=== PATIENT | female | born 1955 | race African-American/Black ===

== ENCOUNTER 2018-02-10 11:24 | Emergency (ER) | payer OTHER ==
[~2018-02-10] VITALS: Ht 162.6 cm; Wt 61.2 kg
[~2018-02-10 11:24] MED LIST: DICL50TA9; GABA-534
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
--- NOTE | 2018-02-10 13:16 | NUR ---
PT IS IN ROOM #2B. DR PROCTOR EVALUATED THE PT.
--- NOTE | 2018-02-10 15:10 | NUR ---
PT WAS D/C'd TO HOME. D/C INSTRUCTIONS GIVEN TO THE PT.
[2018-02-10 15:11] VITALS: BP 136/89
== END 2018-02-10 15:11 | disposition home or self-care (01) ==
LOC: ER 11:24
DX: S16.1XXA Strain of muscle, fascia and tendon at neck level, initial encounter (principal); S39.012A Strain of muscle, fascia and tendon of lower back, initial encounter; R51 Headache; H57.10 Ocular pain, unspecified eye; H92.09 Otalgia, unspecified ear; Z79.899 Other long term (current) drug therapy; Z88.5 Allergy status to narcotic agent; V43.52XA Car driver injured in collision with other type car in traffic accident, initial encounter; Y93.89 Activity, other specified; Y92.89 Other specified places as the place of occurrence of the external cause; Y99.8 Other external cause status
CPT/HCPCS: 70450; 72125; 72131; A4663

== ENCOUNTER 2018-02-12 07:47 | Emergency (ER) | payer OTHER ==
[~2018-02-12] VITALS: Ht 165.1 cm; Wt 61.2 kg
--- NOTE | 2018-02-12 08:02 | NUR ---
is at bedside doing the MSE.
--- NOTE | 2018-02-12 08:34 | NUR ---
Patient requested for copies of all her tests' results (including a cd copy of the x-ray) and the signed discharge paper. Patient discharged to home in stable conditon. Written and verbal after care instructions given to patient. Patient verbalizes understanding of instructions. Patient ambulated to ER waiting room with brisk steady gait.
== END 2018-02-12 08:38 | disposition home or self-care (01) ==
LOC: ER 07:47
DX: G89.11 Acute pain due to trauma (principal); R07.89 Other chest pain; M54.6 Pain in thoracic spine; Z88.5 Allergy status to narcotic agent; Z79.899 Other long term (current) drug therapy; V43.52XA Car driver injured in collision with other type car in traffic accident, initial encounter; Y93.89 Activity, other specified; Y92.89 Other specified places as the place of occurrence of the external cause; Y99.8 Other external cause status
CPT/HCPCS: 71045; 93005; A4663

== ENCOUNTER 2018-06-05 15:02 | Emergency (ER) | payer OTHER ==
[~2018-06-05] VITALS: Ht 167.6 cm; Wt 68.9 kg
--- NOTE | 2018-06-05 15:22 | NUR ---
REFERRED TO FOR HOMELESS PATIENT PROTOCOL.
--- NOTE | 2018-06-05 15:35 | NUR ---
PT IS IN ROOM #2A. DR HAYNES EVALUATED THE PT. DRAPERY HANGER JULIA EVALUATED THE PT.
--- NOTE | 2018-06-05 16:04 | NUR ---
3:20pm: SS consultation received. SW arrived to the ED and met with Dr. Eisenberg to discuss patient's case. SW then met with patient, who was receptive to meeting with this SW. Patient is a 63 year old female who reports that she has been homeless since 2012. Patient states she lives in her car. SW and patient discussed the available homeless resources, and patient declined resources on shelters and declines to be referred to a correction. Patient stated "i have my car, i will return there". SW offered assistance with transportation, but patient declined and stated she will take the bus. Patient was offered a meal. Patient was dressed in appropriate and clean clothes and stated she has more clothes in her car, and declined additional clothing. Patient agreed to take information on resources for food and showers, and SW provided patient with a copy of the [facility] Homeless Resource Directory which includes a list of locations for hot meals, sack, lunches, showers, and food pantries. A list of resources for medical clinics, mental health clinics, and substance abuse treatment programs and clinics provided to patient, along with a list of pharmacies throughout the [facility]. Patient signed the Homeless Patient Waiver Form. Patient expressed gratitude for the resources/information provided. no further SS interventions needed at this time. The Homeless patient waiver form and a copy of the resources provided were filed in patient's ED chart.
--- NOTE | 2018-06-05 16:14 | NUR ---
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 D/C INSTRUCTIONS GIVEN TO THE PT.
[2018-06-05 16:22] VITALS: BP 132/71
== END 2018-06-05 16:24 | disposition home or self-care (01) ==
LOC: ER 15:02
DX: R22.0 Localized swelling, mass and lump, head (principal); K04.7 Periapical abscess without sinus; Z88.5 Allergy status to narcotic agent; Z59.0 Homelessness; Z79.899 Other long term (current) drug therapy
CPT/HCPCS: A4663

== ENCOUNTER 2019-06-13 16:43 | Emergency (ER) | payer OTHER ==
[~2019-06-13] VITALS: Ht 165.1 cm; Wt 63.5 kg
[2019-06-13 18:02] LABS: *BILIRUBIN,URIN NEGATIVE (NEGATIVE); *BLOOD, URINE NEGATIVE (NEGATIVE); *CLARITY,URINE CLEAR (CLEAR); *COLOR,URINE YELLOW (YELLOW); *KETONES,URINE NEGATIVE (NEGATIVE); *UROBILINOGEN,URINE 0.2 E.U./dl (NORMAL); LEUKOCYTE ESTERASE ,URINE TRACE (NEGATIVE); NITRITE, URINE NEGATIVE (NEGATIVE); UGLUCOSE NEGATIVE (NEGATIVE)
[2019-06-13 18:09] LABS: RBC,URINE 0-3 /HPF (0-3); SQUAMOUS EPITHELIAL CELL,UR FEW /HPF (NONE SEEN)
[2019-06-13 18:33] VITALS: BP 133/86
== END 2019-06-13 18:45 | disposition home or self-care (01) ==
LOC: ER 16:48
DX: S39.012A Strain of muscle, fascia and tendon of lower back, initial encounter (principal); S16.1XXA Strain of muscle, fascia and tendon at neck level, initial encounter; V43.62XA Car passenger injured in collision with other type car in traffic accident, initial encounter; Y92.410 Unspecified street and highway as the place of occurrence of the external cause; R35.0 Frequency of micturition; M79.7 Fibromyalgia; R51 Headache; Z59.0 Homelessness; G89.29 Other chronic pain; M25.559 Pain in unspecified hip
CPT/HCPCS: 72050; 72072; 72100; A4663

== ENCOUNTER 2021-01-18 09:27 | Emergency (ER) | payer MEDICARE, OTHER ==
[~2021-01-18] VITALS: Ht 172.7 cm; Wt 74.8 kg
[2021-01-18 09:59] LABS: HEMATOCRIT 38.7 % (31.2-41.9); MEAN CORPUSCULAR HEMOGLOBIN 30.4 uug (24.7-32.8); MEAN CORPUSCULAR VOLUME 89.4 fL (75.5-95.3); PLATELET COUNT (AUTO) 432 K/uL (179-408)
[2021-01-18 10:06] LABS: POTASSIUM 3.8 mmol/L (3.5-5.1)
[2021-01-18] MEDS ORDERED: AMOX500C2 PO (10:45)
--- NOTE | 2021-01-18 11:03 | NUR ---
Gave pt CD/repport and d/c instructions, pt verbalized understanding.
== END 2021-01-18 11:05 | disposition home or self-care (01) ==
LOC: ER 09:27
DX: R51.9 Headache, unspecified (principal); J32.8 Other chronic sinusitis; E04.1 Nontoxic single thyroid nodule; Z59.02 Unsheltered homelessness; M79.7 Fibromyalgia; Z88.6 Allergy status to analgesic agent
CPT/HCPCS: 36415; 70486; 85025; A4663

== ENCOUNTER 2021-05-21 14:14 | Emergency (ER) | payer MEDICARE, OTHER ==
[~2021-05-21] VITALS: Ht 165.1 cm; Wt 74.8 kg
[~2021-05-21 14:14] MED LIST changes: +AMOX500C2 PO
[2021-05-21] MEDS ORDERED: AMOXICILLIN-CLAVUL 875-125MG TABLET PO ONE (14:45)
[2021-05-21] MEDS ORDERED: AMOX-430 PO (14:46)
[2021-05-21] MEDS ORDERED: AMOXICILLIN-CLAVUL 875-125MG TABLET ONE (14:51)
--- NOTE | 2021-05-21 15:02 | NUR ---
Gave pt RX and d/c instructions, pt verbalized understanding.
== END 2021-05-21 15:05 | disposition home or self-care (01) ==
LOC: ER 14:14
DX: R22.0 Localized swelling, mass and lump, head (principal); M79.7 Fibromyalgia; Z88.6 Allergy status to analgesic agent
CPT/HCPCS: A4663

== ENCOUNTER 2021-07-22 21:09 | Emergency (ER) | payer MEDICARE, OTHER ==
[~2021-07-22] VITALS: Ht 165.1 cm; Wt 1.8 kg
[~2021-07-22 21:09] MED LIST changes: +AMOX-430 PO
--- NOTE | 2021-07-22 22:36 | NUR ---
Dr lopez at bedside, MSE in progress.
[2021-07-22] MEDS ORDERED: NITROGLYCERIN OINT 1 GM PACKET TP ONE ×2 (23:00→23:28)
[2021-07-22] MEDS ORDERED: ASPIRIN 81 MG TAB.CHEW PO ONE (23:00)
[2021-07-22 23:14] LABS: MEAN CORPUSCULAR HEMOGLOBIN 29.9 uug (24.7-32.8); MEAN CORPUSCULAR VOLUME 87.2 fL (75.5-95.3); PLATELET COUNT (AUTO) 401 K/uL (179-408)
[2021-07-22 23:24] LABS: CARBON DIOXIDE 30 mmol/L (21-32); CHLORIDE 105 mmol/L (98-107); CREATININE 0.8 mg/dL (0.6-1.3); GLUCOSE 91 mg/dL (74-106); POTASSIUM 3.9 mmol/L (3.5-5.1); UREA NITROGEN, BLOOD 16 mg/dL (7-18)
[2021-07-22] MEDS ORDERED: ASPIRIN 81 MG TAB.CHEW ONE (23:28)
[2021-07-22 23:37] LABS: ALANINE AMINOTRANSFERASE 26 U/L (14-59); ALKALINE PHOSPHATASE 172 U/L (50-136); ASPARTATE AMINOTRANSFERASE 18 U/L (15-37); BILIRUBIN,DIRECT 0.2 mg/dL (0.0-0.2)
[2021-07-23] MEDS ORDERED: HYDR-4209 PO (02:49)
--- NOTE | 2021-07-23 03:09 | NUR ---
Patient discharged to home in stable condition. Written and verbal after care instructions given. Patient verbalizes understanding of instructions. Stressed follow up or return to ER for worsening s/s. pt ambulated with steady gait. denies pain. no SOB. no chest pain. AOx4
[2021-07-23 03:10] VITALS: BP 138/79
== END 2021-07-23 03:11 | disposition home or self-care (01) ==
LOC: ER 21:15
DX: R07.9 Chest pain, unspecified (principal); M79.7 Fibromyalgia; G89.29 Other chronic pain; M54.50 Low back pain, unspecified
CPT/HCPCS: 36415; 71045; 72050; 72072; 72110; 84484; 85025; 85730; 93005; A4663

== ENCOUNTER 2021-08-15 10:36 | Emergency (ER) | payer MEDICARE, OTHER ==
[~2021-08-15] VITALS: Ht 165.1 cm; Wt 69.4 kg
[~2021-08-15 10:36] MED LIST changes: +HYDR-4209 PO
[2021-08-15] MEDS ORDERED: ASPIRIN 325 MG TABLET PO ONE (10:45)
[2021-08-15] MEDS ORDERED: ASPIRIN 325 MG TABLET ONE ×2 (10:55→11:02)
--- NOTE | 2021-08-15 11:22 | NUR ---
PT IS IN ROOM #2B. DR HYATT EVALUATED THE PT.
[2021-08-15 11:30] LABS: HEMATOCRIT 37.4 % (31.2-41.9); MEAN CORPUSCULAR VOLUME 86.8 fL (75.5-95.3); PLATELET COUNT (AUTO) 381 K/uL (179-408)
[2021-08-15 11:58] LABS: CARBON DIOXIDE 26 mmol/L (21-32); CHLORIDE 106 mmol/L (98-107); CREATININE 0.8 mg/dL (0.6-1.3); GLUCOSE 104 mg/dL (74-106); POTASSIUM 3.9 mmol/L (3.5-5.1); UREA NITROGEN, BLOOD 15 mg/dL (7-18)
[2021-08-15 12:07] LABS: ALANINE AMINOTRANSFERASE 24 U/L (14-59); ALKALINE PHOSPHATASE 161 U/L (50-136); ASPARTATE AMINOTRANSFERASE 19 U/L (15-37); BILIRUBIN,DIRECT 0.2 mg/dL (0.0-0.2); BILIRUBIN,TOTAL 0.9 mg/dL (0.2-1.0); TOTAL PROTEIN, SERUM 7.6 g/dL (6.4-8.2)
--- NOTE | 2021-08-15 13:51 | NUR ---
PT WAS D/C'd TO HOME. D/C INSTRUCTIONS GIVEN TO THE PT BY REESE.
[2021-08-15 13:59] VITALS: BP 136/75
== END 2021-08-15 14:00 | disposition home or self-care (01) ==
LOC: ER 10:38
DX: R07.9 Chest pain, unspecified (principal); S16.1XXA Strain of muscle, fascia and tendon at neck level, initial encounter; X58.XXXA Exposure to other specified factors, initial encounter; Y92.89 Other specified places as the place of occurrence of the external cause; G89.29 Other chronic pain; M54.9 Dorsalgia, unspecified; I10 Essential (primary) hypertension; M79.7 Fibromyalgia
CPT/HCPCS: 36415; 71045; 84484; 85025; 93005; A4663

== ENCOUNTER 2022-03-13 07:14 | Emergency (ER) | payer MEDICARE, OTHER ==
[~2022-03-13] VITALS: Ht 165.1 cm; Wt 72.6 kg
[~2022-03-13 07:14] MED LIST changes: -AMOX-430 PO; -AMOX500C2 PO
--- NOTE | 2022-03-13 08:03 | NUR ---
Pt refused Covid swab -- would not allow "violation" of her body/nasal space.
[2022-03-13 08:13] LABS: HEMATOCRIT 40.9 % (31.2-41.9); MEAN CORPUSCULAR HEMOGLOBIN 29.7 uug (24.7-32.8); MEAN CORPUSCULAR VOLUME 86.1 fL (75.5-95.3); PLATELET COUNT (AUTO) 475 K/uL (179-408)
[2022-03-13 08:19] LABS: CARBON DIOXIDE 26 mmol/L (21-32); CHLORIDE 106 mmol/L (98-107); GLUCOSE 120 mg/dL (74-106); POTASSIUM 3.7 mmol/L (3.5-5.1); UREA NITROGEN, BLOOD 8 mg/dL (7-18)
[2022-03-13 08:19] LABS: *BILIRUBIN,URIN NEGATIVE (NEGATIVE); *BLOOD, URINE NEGATIVE (NEGATIVE); *CLARITY,URINE CLEAR (CLEAR); *COLOR,URINE YELLOW (YELLOW); *KETONES,URINE NEGATIVE (NEGATIVE); *UROBILINOGEN,URINE 0.2 E.U./dl (NORMAL); LEUKOCYTE ESTERASE ,URINE NEGATIVE (NEGATIVE); NITRITE, URINE NEGATIVE (NEGATIVE); UGLUCOSE NEGATIVE (NEGATIVE)
[2022-03-13 08:24] LABS: ALANINE AMINOTRANSFERASE 13 U/L (14-59); ALKALINE PHOSPHATASE 175 U/L (50-136); ASPARTATE AMINOTRANSFERASE 14 U/L (15-37); BILIRUBIN,TOTAL 1.1 mg/dL (0.2-1.0)
[2022-03-13 08:25] LABS: ACETAMINOPHEN < 2.0 ug/mL (10-30)
[2022-03-13] MEDS ORDERED: ACETAMINOPHEN 325 MG TABLET PO ONE (08:30)
[2022-03-13 08:50] VITALS: BP 154/81
--- NOTE | 2022-03-13 08:50 | NUR ---
Patient discharged to home in stable condition. Written and verbal after care instructions given. Patient verbalizes understanding of instructions. Stressed follow up or return to ER for worsening s/s.
== END 2022-03-13 08:50 | disposition home or self-care (01) ==
LOC: ER 07:14
DX: B34.9 Viral infection, unspecified (principal); J20.9 Acute bronchitis, unspecified; D75.839 Thrombocytosis, unspecified; M79.7 Fibromyalgia; J44.9 Chronic obstructive pulmonary disease, unspecified
CPT/HCPCS: 36415; 71045; 85025; A4663

== ENCOUNTER 2022-11-20 23:45 | Emergency (ER) | payer MEDICARE, OTHER ==
[~2022-11-20] VITALS: Ht 162.6 cm; Wt 65.8 kg
[2022-11-21 00:50] LABS: BASOPHILS # (AUTO) 0.4 K/UL (0.0-0.2); BASOPHILS % (AUTO) 4.7 % (0.0-2.0); DIFFERENTIAL COMMENT 0; EOSINOPHILS # (AUTO) 0.4 K/uL (0.0-0.7); EOSINOPHILS % (AUTO) 5.1 % (0.0-7.0); HEMOGLOBIN 12.3 g/dL (10.9-14.3); LYMPHOCYTES # (AUTO) 1.8 K/uL (0.8-4.8); LYMPHOCYTES % (AUTO) 22.6 % (20.5-51.5); MEAN CORPUSCULAR HEMOGLOBIN 30.4 uug (24.7-32.8); MEAN CORPUSCULAR HGB CONC 34 g/dL (32.3-35.6); MEAN CORPUSCULAR VOLUME 88.6 fL (75.5-95.3); MONOCYTES # (AUTO) 0.6 K/uL (0.1-1.30); MONOCYTES % (AUTO) 7.8 % (0.0-11.0); NEUTROPHILS # (AUTO) 4.6 K/uL (1.8-8.9); NEUTROPHILS % (AUTO) 59.8 % (38.5-71.5); PLATELET COUNT (AUTO) 373 K/uL (179-408); RED BLOOD CELL COUNT(AUTO) 4.06 MIL/uL (3.63-4.92); RED CELL DISTRIBUTION WIDTH 13.7 % (12.3-17.7); WHITE BLOOD COUNT (AUTO) 7.8 K/uL (3.8-11.8)
[2022-11-21 00:53] LABS: CALCIUM 8.9 mg/dL (8.5-10.1); CARBON DIOXIDE 25 mmol/L (21-32); CHLORIDE 106 mmol/L (98-107); GLUCOSE 115 mg/dL (74-106); POTASSIUM 4.1 mmol/L (3.5-5.1); SODIUM SERUM 143 mmol/L (136-145); UREA NITROGEN, BLOOD 16 mg/dL (7-18)
[2022-11-21 01:01] LABS: ALANINE AMINOTRANSFERASE 30 U/L (14-59); ALBUMIN 3.6 g/dL (3.4-5.0); ALKALINE PHOSPHATASE 117 U/L (50-136); ASPARTATE AMINOTRANSFERASE 22 U/L (15-37); BILIRUBIN,DIRECT 0.2 mg/dL (0.0-0.2); BILIRUBIN,TOTAL 0.8 mg/dL (0.2-1.0); TOTAL PROTEIN, SERUM 6.9 g/dL (6.4-8.2)
[2022-11-21] MEDS ORDERED: CYCL10TA9 PO (05:13)
[2022-11-21 05:31] VITALS: BP 136/92; TEMP 98.3; O2SAT 98
== END 2022-11-21 05:15 | disposition home or self-care (01) ==
LOC: ER 23:48
DX: M54.2 Cervicalgia (principal); R51.9 Headache, unspecified; M25.511 Pain in right shoulder; R07.89 Other chest pain; M25.551 Pain in right hip; M25.552 Pain in left hip; E78.5 Hyperlipidemia, unspecified; G89.29 Other chronic pain; M54.9 Dorsalgia, unspecified; Z88.5 Allergy status to narcotic agent; Z79.899 Other long term (current) drug therapy; V69.9XXA Occupant (driver) (passenger) of heavy transport vehicle injured in unspecified traffic accident, initial encounter; Y93.89 Activity, other specified; Y92.89 Other specified places as the place of occurrence of the external cause; Y99.8 Other external cause status
CPT/HCPCS: 36415; 70450; 71045; 72125; 72170; 73020; 84484; 85025; 93005; A4663

== ENCOUNTER 2022-11-27 14:38 | Emergency (ER) | payer MEDICARE, OTHER ==
[~2022-11-27] VITALS: Ht 165.1 cm; Wt 68.0 kg
[~2022-11-27 14:38] MED LIST changes: +CYCL10TA9 PO
[2022-11-27] MEDS ORDERED: PRAVASTATIN (15:19)
[2022-11-27] MEDS ORDERED: PLAVIX (15:19)
[2022-11-27 15:55] LABS: BASOPHILS % (AUTO) 0.7 % (0.0-2.0); EOSINOPHILS # (AUTO) 0.3 K/uL (0.0-0.7); EOSINOPHILS % (AUTO) 4.3 % (0.0-7.0); HEMATOCRIT 36.8 % (31.2-41.9); HEMOGLOBIN 12.5 g/dL (10.9-14.3); LYMPHOCYTES # (AUTO) 2.2 K/uL (0.8-4.8); LYMPHOCYTES % (AUTO) 35.5 % (20.5-51.5); MEAN CORPUSCULAR HGB CONC 34 g/dL (32.3-35.6); MEAN CORPUSCULAR VOLUME 88.5 fL (75.5-95.3); MONOCYTES # (AUTO) 0.4 K/uL (0.1-1.30); MONOCYTES % (AUTO) 7.1 % (0.0-11.0); NEUTROPHILS # (AUTO) 3.3 K/uL (1.8-8.9); NEUTROPHILS % (AUTO) 52.4 % (38.5-71.5); PLATELET COUNT (AUTO) 382 K/uL (179-408); RED BLOOD CELL COUNT(AUTO) 4.16 MIL/uL (3.63-4.92); RED CELL DISTRIBUTION WIDTH 13.6 % (12.3-17.7); WHITE BLOOD COUNT (AUTO) 6.3 K/uL (3.8-11.8)
[2022-11-27 16:01] LABS: DIFFERENTIAL COMMENT 1
[2022-11-27] MEDS ORDERED: IOHEXOL 300MG/ML 100 ML INFUS..BTL ONE ×2 (16:04→16:08)
[2022-11-27] MEDS ORDERED: SWABABLE VALVE TRANSFER SET EA MC ONE ×2 (16:04→16:08)
[2022-11-27] MEDS ORDERED: IV NORMAL SALINE 250 ML IV ONE ×2 (16:04→16:08)
[2022-11-27 16:07] LABS: CALCIUM 9.2 mg/dL (8.5-10.1); CREATININE 1.5 mg/dL (0.6-1.3); POTASSIUM 4.2 mmol/L (3.5-5.1)
[2022-11-27] MEDS ORDERED: CYCL5TAB PO (18:47)
[2022-11-27 19:02] VITALS: BP 125/60; O2SAT 97
== END 2022-11-27 19:03 | disposition home or self-care (01) ==
LOC: ER 14:46
DX: M54.9 Dorsalgia, unspecified (principal); G89.29 Other chronic pain; M54.2 Cervicalgia; Z88.5 Allergy status to narcotic agent; Z79.899 Other long term (current) drug therapy
CPT/HCPCS: 99285; 72126; 80048; 85025; 36415; 93005; 72131; Q9967 ×2; A4663

== ENCOUNTER 2024-03-23 15:06 | Inpatient (IN) | payer MEDICARE, OTHER ==
[~2024-03-23] VITALS: Ht 165.1 cm; Wt 71.2 kg
[~2024-03-23 15:06] MED LIST changes: -CYCL10TA9 PO; +CYCL5TAB PO; -DICL50TA9; -GABA-534; -HYDR-4209 PO; +PLAVIX; +PRAVASTATIN
[2024-03-23 16:10] LABS: BASOPHILS % (AUTO) 0.4 % (0.0-2.0); EOSINOPHILS % (AUTO) 0.4 % (0.0-7.0); HEMATOCRIT 37.2 % (31.2-41.9); HEMOGLOBIN 12.2 g/dL (10.9-14.3); LYMPHOCYTES # (AUTO) 0.2 K/uL (0.8-4.8); LYMPHOCYTES % (AUTO) 2.6 % (20.5-51.5); MEAN CORPUSCULAR HEMOGLOBIN 28.3 uug (24.7-32.8); MEAN CORPUSCULAR HGB CONC 33 g/dL (32.3-35.6); MEAN CORPUSCULAR VOLUME 86.4 fL (75.5-95.3); MONOCYTES # (AUTO) 0.6 K/uL (0.1-1.30); MONOCYTES % (AUTO) 7.1 % (0.0-11.0); NEUTROPHILS # (AUTO) 7.8 K/uL (1.8-8.9); NEUTROPHILS % (AUTO) 89.5 % (38.5-71.5); PLATELET COUNT (AUTO) 388 K/uL (179-408); RED BLOOD CELL COUNT(AUTO) 4.31 MIL/uL (3.63-4.92); RED CELL DISTRIBUTION WIDTH 13.7 % (12.3-17.7); WHITE BLOOD COUNT (AUTO) 8.7 K/uL (3.8-11.8)
[2024-03-23] MEDS ORDERED: ONDANSETRON 4 MG/2 ML VIAL ONE (16:13)
[2024-03-23 16:23] LABS: AMMONIA 23 umol/L (11-32)
[2024-03-23] MEDS: ONDANSETRON 4 MG/2 ML VIAL IV ONE (16:30)
[2024-03-23] MEDS: IV NORMAL SALINE 1000 ML BAG IV ONE (16:30)
[2024-03-23 16:51] LABS: CALCIUM 8.9 mg/dL (8.5-10.1); CARBON DIOXIDE 23 mmol/L (21-32); CHLORIDE 104 mmol/L (98-107); GLUCOSE 116 mg/dL (74-106); POTASSIUM 3.9 mmol/L (3.5-5.1); SODIUM SERUM 138 mmol/L (136-145); UREA NITROGEN, BLOOD 13 mg/dL (7-18)
[2024-03-23 16:59] LABS: ALANINE AMINOTRANSFERASE 14 U/L (14-59); ALBUMIN 3.6 g/dL (3.4-5.0); ALKALINE PHOSPHATASE 154 U/L (50-136); ASPARTATE AMINOTRANSFERASE 11 U/L (15-37); BILIRUBIN,DIRECT 0.2 mg/dL (0.0-0.2); BILIRUBIN,TOTAL 1.1 mg/dL (0.2-1.0); TOTAL PROTEIN, SERUM 8.4 g/dL (6.4-8.2)
[2024-03-23 17:23] LABS: *BILIRUBIN,URIN NEGATIVE (NEGATIVE); *CLARITY,URINE CLEAR (CLEAR); *COLOR,URINE YELLOW (YELLOW); *KETONES,URINE TRACE (NEGATIVE); *PROTEIN,URINE TRACE (NEGATIVE); *UROBILINOGEN,URINE 0.2 E.U./dl (NORMAL); LEUKOCYTE ESTERASE ,URINE TRACE (NEGATIVE); NITRITE, URINE NEGATIVE (NEGATIVE); PH,URINE 5.5 (5.0-8.0); UGLUCOSE NEGATIVE (NEGATIVE)
[2024-03-23 17:25] LABS: *BLOOD, URINE TRACE (NEGATIVE)
[2024-03-23] MEDS ORDERED: IOHEXOL 350 100 ML INFUS..BTL ONE (17:43)
[2024-03-23] MEDS ORDERED: IV NORMAL SALINE 250 ML IV ONE (17:43)
[2024-03-23] MEDS ORDERED: SWABABLE VALVE TRANSFER SET EA MC ONE (17:44)
[2024-03-23 17:49] LABS: BACTERIA,URINE MODERATE /HPF (NONE SEEN); SQUAMOUS EPITHELIAL CELL,UR FEW /HPF (NONE SEEN)
[2024-03-23 17:50] LABS: URINE AMORPHOUS URATE MANY /HPF
[2024-03-23] MEDS ORDERED: hydrALAZINE HCL 20 MG/1 ML VIAL IV PRN (18:00)
[2024-03-23] MEDS ORDERED: ONDANSETRON 4 MG/2 ML VIAL IV PRN (18:00)
[2024-03-23] MEDS ORDERED: ACETAMINOPHEN 325 MG TABLET PO PRN (18:00)
[2024-03-23] MEDS ORDERED: MORPHINE SULFATE 2 MG/1 ML DISP.SYRIN IVP PRN (18:00)
[2024-03-23] MEDS ORDERED: CYANOCOBALAMIN 1000 MCG/ML VIAL ONE (18:39)
[2024-03-23] MEDS ORDERED: AMOXICILLIN-CLAVUL 875-125MG TABLET ONE (18:39)
[2024-03-23] MEDS: CYANOCOBALAMIN 1000 MCG/ML VIAL IM ONE (18:46)
[2024-03-23] MEDS: AMOXICILLIN-CLAVUL 875-125MG TABLET PO ONE (18:46)
[2024-03-23 21:54] VITALS: BP 154/77; TEMP 99.6; O2SAT 93
[2024-03-24] VITALS (7 sets, daily range): BP systolic 135–158; BP diastolic 64–76; TEMP 98.3–99.8; O2SAT 92–96
[2024-03-24 07:24] LABS: BASOPHILS % (AUTO) 0.4 % (0.0-2.0); EOSINOPHILS % (AUTO) 0.1 % (0.0-7.0); HEMATOCRIT 31.9 % (31.2-41.9); LYMPHOCYTES # (AUTO) 0.3 K/uL (0.8-4.8); LYMPHOCYTES % (AUTO) 5.4 % (20.5-51.5); MEAN CORPUSCULAR HEMOGLOBIN 29.6 uug (24.7-32.8); MEAN CORPUSCULAR HGB CONC 34 g/dL (32.3-35.6); MEAN CORPUSCULAR VOLUME 86.2 fL (75.5-95.3); MONOCYTES % (AUTO) 16.5 % (0.0-11.0); NEUTROPHILS # (AUTO) 4.6 K/uL (1.8-8.9); NEUTROPHILS % (AUTO) 77.6 % (38.5-71.5); PLATELET COUNT (AUTO) 316 K/uL (179-408); RED BLOOD CELL COUNT(AUTO) 3.71 MIL/uL (3.63-4.92); RED CELL DISTRIBUTION WIDTH 13.8 % (12.3-17.7)
[2024-03-24 07:43] LABS: DIFFERENTIAL COMMENT 1
[2024-03-24 07:59] LABS: ALBUMIN 3.1 g/dL (3.4-5.0); BILIRUBIN,TOTAL 1.2 mg/dL (0.2-1.0); CALCIUM 8.1 mg/dL (8.5-10.1); PHOSPHOROUS 3.4 mg/dL (2.5-4.9); POTASSIUM 3.6 mmol/L (3.5-5.1); TOTAL PROTEIN, SERUM 6.9 g/dL (6.4-8.2)
[2024-03-24] MEDS: CEFTRIAXONE 1 G in IV DEXTROSE 5% 50 ML IV SCH (08:13)
[2024-03-24] MEDS: HEPARIN SODIUM,PORCINE 5,000 UNITS/ML VIAL SQ SCH (08:20)
[2024-03-24 11:21] LABS: LYMPHOCYTES % (MANUAL) 5 % (20-40); NEUTROPHILS % (MANUAL) 78 % (42-75)
[2024-03-24 11:22] LABS: MONOCYTES % (MANUAL) 17 % (2-10); PLATELET ESTIMATE ADEQUATE
[2024-03-24] MEDS: AMIODARONE HCL IV 150 MG in IV DEXTROSE 5% 100 ML IV ONE (18:08)
[2024-03-24] MEDS: APIXABAN 5 MG TABLET PO SCH (18:08)
[2024-03-24] MEDS: AMIODARONE HCL IV 450 MG in IV DEXTROSE 5% 250 ML IV PRN (18:19)
[2024-03-25] VITALS (7 sets, daily range): BP systolic 127–152; BP diastolic 65–84; TEMP 96.9–99.7; O2SAT 94–100
[2024-03-25] MEDS: METOPROLOL TARTRATE 25 MG TABLET PO SCH (16:10)
[2024-03-26] VITALS: BP 145/79; TEMP 96.9; O2SAT 100
[2024-03-26 02:41] VITALS: BP 145/79; TEMP 94.7; O2SAT 100
[2024-03-26 06:00] VITALS: BP 139/59; TEMP 98.7
[2024-03-26 06:48] LABS: BASOPHILS % (AUTO) 0.3 % (0.0-2.0); EOSINOPHILS # (AUTO) 0.1 K/uL (0.0-0.7); EOSINOPHILS % (AUTO) 2.4 % (0.0-7.0); HEMATOCRIT 34.3 % (31.2-41.9); HEMOGLOBIN 11.4 g/dL (10.9-14.3); LYMPHOCYTES # (AUTO) 1.1 K/uL (0.8-4.8); LYMPHOCYTES % (AUTO) 20.4 % (20.5-51.5); MEAN CORPUSCULAR HEMOGLOBIN 28.6 uug (24.7-32.8); MEAN CORPUSCULAR HGB CONC 33 g/dL (32.3-35.6); MONOCYTES # (AUTO) 0.7 K/uL (0.1-1.30); MONOCYTES % (AUTO) 13.1 % (0.0-11.0); NEUTROPHILS # (AUTO) 3.5 K/uL (1.8-8.9); NEUTROPHILS % (AUTO) 63.8 % (38.5-71.5); PLATELET COUNT (AUTO) 344 K/uL (179-408); RED BLOOD CELL COUNT(AUTO) 3.99 MIL/uL (3.63-4.92); RED CELL DISTRIBUTION WIDTH 13.9 % (12.3-17.7); WHITE BLOOD COUNT (AUTO) 5.4 K/uL (3.8-11.8)
[2024-03-26 07:01] LABS: DIFFERENTIAL COMMENT 1
[2024-03-26 07:06] LABS: MAGNESIUM 1.8 mg/dL (1.8-2.4); PHOSPHOROUS 3.6 mg/dL (2.5-4.9); POTASSIUM 3.6 mmol/L (3.5-5.1)
[2024-03-26 08:00] VITALS: BP 141/66; TEMP 98; O2SAT 98
[2024-03-26 08:06] LABS: CANCER ANTIGEN 15-3 25.3 U/mL (0.0-25.0); CARCINOEMBRYONIC AG (CEA) 3.4 ng/mL (0.0-4.7)
[2024-03-26 12:00] VITALS: BP 151/72; TEMP 98.3; O2SAT 98
[2024-03-26 16:00] VITALS: BP 145/45; TEMP 98.3; O2SAT 98
[2024-03-26] MEDS: METHIMAZOLE 5 MG TABLET PO SCH (16:21)
[2024-03-26] MEDS ORDERED: METO25TA6 PO (17:38)
[2024-03-26] MEDS ORDERED: CEPH500C2 PO (17:38)
[2024-03-26] MEDS ORDERED: METH5TAB34 PO (17:38)
[2024-03-26] MEDS ORDERED: ESOM40CA PO (17:38)
[2024-03-26] MEDS ORDERED: APIX5TAB PO (17:38)
[2024-03-26] MEDS ORDERED: CEphaleXIN 500 MG CAPSULE PO SCH (21:00)
== END 2024-03-26 18:30 | disposition home or self-care (01) | DRG 871 ==
LOC: ER 15:06 → TELE3 20:31 → TELE-TD3 03-24 17:22 → TELE3 03-25 16:38 → MEDSURG3 03-26 09:13
PROVIDERS: ADMIT Internal Medicine; ATTEND Internal Medicine
PROC: 05HB33Z Insertion of Infusion Device into Right Basilic Vein, Percutaneous Approach (ICD-10-PCS; principal; 2024-03-25)
DX: A41.50 Gram-negative sepsis, unspecified (principal); G92.8 Other toxic encephalopathy; N39.0 Urinary tract infection, site not specified; C77.3 Secondary and unspecified malignant neoplasm of axilla and upper limb lymph nodes; K92.0 Hematemesis; C50.912 Malignant neoplasm of unspecified site of left female breast; Z86.73 Personal history of transient ischemic attack (TIA), and cerebral infarction without residual deficits; R79.1 Abnormal coagulation profile; J32.0 Chronic maxillary sinusitis; E53.8 Deficiency of other specified B group vitamins; I25.10 Atherosclerotic heart disease of native coronary artery without angina pectoris; E78.5 Hyperlipidemia, unspecified; E88.09 Other disorders of plasma-protein metabolism, not elsewhere classified; I10 Essential (primary) hypertension; E05.20 Thyrotoxicosis with toxic multinodular goiter without thyrotoxic crisis or storm; I48.0 Paroxysmal atrial fibrillation; E66.9 Obesity, unspecified; Z68.26 Body mass index [BMI] 26.0-26.9, adult; M15.9 Polyosteoarthritis, unspecified; J34.1 Cyst and mucocele of nose and nasal sinus; J33.8 Other polyp of sinus; D71 Functional disorders of polymorphonuclear neutrophils; G89.29 Other chronic pain; R79.89 Other specified abnormal findings of blood chemistry; R97.0 Elevated carcinoembryonic antigen [CEA]
CPT/HCPCS: 36415; 70030-TC; 70450; 71045; 76641-TC; 82378; 83605; 83735; 84100; 84443; 84481; 84484; 85025; 85730; 86300; 93307; A4606; A4663; G0378; J0282; J0696; J1644; J2405; J3420; J7040; J7050; Q9967